=== PATIENT | female | born 1965 | race Hispanic/Latino ===

== ENCOUNTER → 2017-07-18 | Outpatient (CLI) | payer MEDICARE | END | disposition home or self-care (01) | LOC: OIH 09:16 | PROVIDERS: ATTEND Internal Medicine | DX: K76.0 Fatty (change of) liver, not elsewhere classified (principal); K44.9 Diaphragmatic hernia without obstruction or gangrene; K57.90 Diverticulosis of intestine, part unspecified, without perforation or abscess without bleeding; M47.895 Other spondylosis, thoracolumbar region; I70.90 Unspecified atherosclerosis; Z90.49 Acquired absence of other specified parts of digestive tract | CPT/HCPCS: 74176 ==

== ENCOUNTER 2017-09-03 20:27 | Emergency (ER) | payer MEDICARE ==
[2017-09-03 21:15] LABS: BASOPHILS % (AUTO) 0.1 % (0.0-5.0); HEMATOCRIT 39.1 % (36-48); MEAN CORPUSCULAR HEMOGLOBIN 33.1 pg (27.0-33.0); MEAN CORPUSCULAR HGB CONC 35.4 g/dL (32.0-36.0); MEAN CORPUSCULAR VOLUME 93.4 fL (79-99); MONOCYTES % (AUTO) 1.6 % (3.0-13.0); NEUTROPHILS % (AUTO) 87.3 % (40.0-77.0); PLATELET COUNT (AUTO) 302 K/uL (130-400); RED BLOOD CELL COUNT(AUTO) 4.18 MIL/uL (4.00-5.50); RED CELL DISTRIBUTION WIDTH 13.3 % (11.0-15.5); WHITE BLOOD COUNT (AUTO) 8.8 K/uL (4.8-10.8)
[2017-09-03 21:19] LABS: CREATININE 0.9 mg/dL (0.5-1.5); POTASSIUM 3.8 mmol/L (3.5-5.1)
[2017-09-03 21:21] LABS: APPEARANCE,URINE Clear (CLEAR); BILIRUBIN,URINE Negative (NEGATIVE); COLOR,URINE Yellow (YELLOW); GLUCOSE, URINE (UA) Negative (NEGATIVE); KETONES,URINE Trace mg/dL (NEGATIVE); LEUKOCYTE ESTERASE ,URINE Negative (NEGATIVE); NITRATE,URINE Negative (NEGATIVE); OCCULT BLOOD,URINE Small (NEGATIVE); PROTEIN,URINE POS 1+ (NEGATIVE); UROBILINOGEN,URINE 0.2 mg/dL (0.2-1.0)
[2017-09-03 21:22] LABS: INR 0.95 (0.85-1.15); PARTIAL THROMBOPLASTIN TIME 25.9 SEC (26.3-35.5)
[2017-09-03 21:24] LABS: ALBUMIN 3.8 g/dL (3.5-5.0); BILIRUBIN,TOTAL 0.3 mg/dL (0.2-1.0); TOTAL PROTEIN, SERUM 7.9 g/dL (6.0-8.3)
[2017-09-03 21:29] LABS: BACTERIA,URINE Rare /HPF (None Seen); SQUAMOUS EPITHELIAL CELL,UR 0-2 /LPF (0-2); WBC,URINE None Seen /HPF (0-1)
[2017-09-03] MEDS ORDERED: ONDANSETRON HCL 4 MG/2 ML VIAL ONE (21:56)
[2017-09-03] MEDS ORDERED: DiphenhydrAMINE HCL 50 MG/ML VIAL ONE (21:56)
[2017-09-03] MEDS ORDERED: METOCLOPRAMIDE 10 MG TABLET ONE (22:01)
[2017-09-03] MEDS ORDERED: CLONIDINE HCL 0.1 MG TABLET ONE (23:48)
[2017-09-03] MEDS ORDERED: KETOROLAC TROMETHAMINE 30MG/ML ONE (23:51)
== END 2017-09-04 01:14 | disposition home or self-care (01) ==
LOC: EDH 20:27
DX: I10 Essential (primary) hypertension (principal); R51 Headache; E78.5 Hyperlipidemia, unspecified; F32.9 Major depressive disorder, single episode, unspecified; R79.1 Abnormal coagulation profile; Z90.710 Acquired absence of both cervix and uterus; Z90.49 Acquired absence of other specified parts of digestive tract
CPT/HCPCS: 36415; 70450; 80053; 81001; 85025; 85610; 85730; 96374; 96375; 99285; J1200; J1885; J2405

== ENCOUNTER 2017-12-30 00:24 | Observation (INO) | payer MEDICARE ==
[~2017-12-30] VITALS: Ht 162.6 cm; Wt 89.8 kg
[2017-12-30 00:58] LABS: BASOPHILS % (AUTO) 0.4 % (0.0-5.0); HEMATOCRIT 38.8 % (36-48); LYMPHOCYTES % (AUTO) 13.2 % (21.0-51.0); MEAN CORPUSCULAR HEMOGLOBIN 32.9 pg (27.0-33.0); MEAN CORPUSCULAR HGB CONC 35.4 g/dL (32.0-36.0); MONOCYTES % (AUTO) 1.8 % (3.0-13.0); NEUTROPHILS % (AUTO) 84.6 % (40.0-77.0); PLATELET COUNT (AUTO) 305 K/uL (130-400); RED BLOOD CELL COUNT(AUTO) 4.17 MIL/uL (4.00-5.50); RED CELL DISTRIBUTION WIDTH 13.1 % (11.0-15.5); WHITE BLOOD COUNT (AUTO) 9.4 K/uL (4.8-10.8)
[2017-12-30 01:09] LABS: CREATININE 0.8 mg/dL (0.5-1.5); POTASSIUM 3.7 mmol/L (3.5-5.1)
[2017-12-30 01:14] LABS: BILIRUBIN,TOTAL 0.3 mg/dL (0.2-1.0); TOTAL PROTEIN, SERUM 7.8 g/dL (6.0-8.3)
[2017-12-30] MEDS ORDERED: METOPROLOL TARTRATE 1 MG/ML 5ML VIAL IV ONE (01:16)
[2017-12-30] MEDS ORDERED: HYDRALAZINE HCL 25 MG TABLET ONE (01:16)
[2017-12-30] MEDS ORDERED: ACETAMINOPHEN EXTRA STRENGTH 500 MG TABLET ONE (01:17)
[2017-12-30] MEDS ORDERED: LORAZEPAM 1 MG TABLET ONE (01:18)
[2017-12-30 01:32] LABS: APPEARANCE,URINE Clear (CLEAR); BILIRUBIN,URINE Negative (NEGATIVE); COLOR,URINE Yellow (YELLOW); GLUCOSE, URINE (UA) Negative (NEGATIVE); KETONES,URINE Negative (NEGATIVE); LEUKOCYTE ESTERASE ,URINE Negative (NEGATIVE); NITRATE,URINE Negative (NEGATIVE); OCCULT BLOOD,URINE Trace (NEGATIVE); PROTEIN,URINE Trace (NEGATIVE); UROBILINOGEN,URINE 0.2 mg/dL (0.2-1.0)
[2017-12-30 01:54] LABS: BACTERIA,URINE Few /HPF (None Seen); RBC,URINE 0-1 /HPF (0-1); WBC,URINE 0-1 /HPF (0-1)
[2017-12-30] MEDS ORDERED: METOCLOPRAMIDE 10 MG/2 ML VIAL ONE (02:43)
[2017-12-30] MEDS ORDERED: ONDANSETRON HCL 4 MG/2 ML VIAL ONE (02:44)
[2017-12-30] MEDS ORDERED: DiphenhydrAMINE HCL 50 MG/ML VIAL ONE (02:44)
[2017-12-30] MEDS ORDERED: SODIUM CHLORIDE 0.9% 50 ML IV ONE (02:44)
[2017-12-30 05:56] VITALS: BP 128/72
[2017-12-30] MEDS ORDERED: ONDANSETRON HCL MDV 20ML 2 MG/ML VIAL IVP PRN (06:00)
[2017-12-30 07:45] VITALS: BP 115/57
[2017-12-30] MEDS ORDERED: ACETAMINOPHEN 325 MG TAB PO PRN (10:30)
[2017-12-30 11:23] VITALS: BP 103/57
[2017-12-30] MEDS ORDERED: ACETAMINOPHEN-CODEINE 300/30MG TAB PO SCH (13:15)
[2017-12-30 16:31] VITALS: BP 132/77
== END 2017-12-30 17:12 | disposition home or self-care (01) ==
LOC: EDH 00:24 → EDHIP 04:05 → 4AH 05:50
PROVIDERS: ADMIT Internal Medicine; ATTEND Internal Medicine
DX: I10 Essential (primary) hypertension (principal); E78.5 Hyperlipidemia, unspecified; I16.1 Hypertensive emergency; Z90.710 Acquired absence of both cervix and uterus; Z79.899 Other long term (current) drug therapy
CPT/HCPCS: 36415; 70450; 80053; 81001; 85025; 93005; 99285; G0378 ×13; J1200; J2405; J2765; J3490

== ENCOUNTER 2018-03-14 15:50 | Emergency (ER) | payer MEDICARE ==
[2018-03-14] MEDS ORDERED: DIPHENHYDRAMINE HCL 25 MG CAPSULE ONE (16:11)
[2018-03-14] MEDS ORDERED: FAMOTIDINE 20MG TAB 20 MG TAB ONE (16:11)
[2018-03-14] MEDS ORDERED: KETOROLAC TROMETHAMINE 60 MG/2 ML VIAL ONE (16:11)
== END 2018-03-14 16:24 | disposition home or self-care (01) ==
LOC: EDH 15:50
DX: S60.561A Insect bite (nonvenomous) of right hand, initial encounter (principal); I10 Essential (primary) hypertension; E78.5 Hyperlipidemia, unspecified; F32.9 Major depressive disorder, single episode, unspecified; Z90.710 Acquired absence of both cervix and uterus; Z90.49 Acquired absence of other specified parts of digestive tract; W57.XXXA Bitten or stung by nonvenomous insect and other nonvenomous arthropods, initial encounter; Y93.89 Activity, other specified; Y92.098 Other place in other non-institutional residence as the place of occurrence of the external cause; Y99.8 Other external cause status
CPT/HCPCS: 96372; 99283; J1885; Q0163

== ENCOUNTER 2018-03-31 10:33 | Emergency (ER) | payer MEDICARE ==
[2018-03-31] MEDS ORDERED: ONDANSETRON HCL 4 MG/2 ML VIAL ONE (11:30)
[2018-03-31] MEDS ORDERED: SODIUM CHLORIDE 0.9% 1000ML 1,000 ML IV ONE (11:31)
[2018-03-31] MEDS ORDERED: MORPHINE SULFATE 4 MG/1ML SYG ONE (11:31)
[2018-03-31 11:33] LABS: BASOPHILS % (AUTO) 0.5 % (0.0-5.0); EOSINOPHILS % (AUTO) 1.1 % (0.0-8.0); MEAN CORPUSCULAR HEMOGLOBIN 32.6 pg (27.0-33.0); MEAN CORPUSCULAR HGB CONC 34.3 g/dL (32.0-36.0); MEAN CORPUSCULAR VOLUME 94.9 fL (79-99); MONOCYTES % (AUTO) 10.2 % (3.0-13.0); NEUTROPHILS % (AUTO) 44.2 % (40.0-77.0); NUCLEATED RED BLOOD CELLS 0.1 % (0.0-0.19); PLATELET COUNT (AUTO) 241 K/uL (130-400); RED CELL DISTRIBUTION WIDTH 12.6 % (11.0-15.5); WHITE BLOOD COUNT (AUTO) 4.2 K/uL (4.8-10.8)
[2018-03-31 11:43] LABS: CREATININE 0.7 mg/dL (0.5-1.5); POTASSIUM 3.9 mmol/L (3.5-5.1)
[2018-03-31 11:50] LABS: ALBUMIN 3.6 g/dL (3.5-5.0); BILIRUBIN,TOTAL 0.3 mg/dL (0.2-1.0); TOTAL PROTEIN, SERUM 7.1 g/dL (6.0-8.3)
[2018-03-31 12:11] LABS: INR 0.97 (0.85-1.15); PARTIAL THROMBOPLASTIN TIME 28.7 SEC (26.3-35.5); PROTHROMBIN TIME 10.2 SEC (9.6-11.6)
[2018-03-31] MEDS ORDERED: IOHEXOL-350 75 ML VIAL IV ONE (12:31)
[2018-03-31] MEDS ORDERED: MAG HYDROX/AL HYDROX/SIMETH ES 30 ML SUSP UDCUP ONE (13:39)
[2018-03-31] MEDS ORDERED: LIDOCAINE HCL 2% VISCOUS 15 ML UDCUP ONE (13:40)
== END 2018-03-31 14:31 | disposition home or self-care (01) ==
LOC: EDH 10:33
DX: R10.10 Upper abdominal pain, unspecified (principal); R11.2 Nausea with vomiting, unspecified; R19.7 Diarrhea, unspecified; I10 Essential (primary) hypertension; E78.5 Hyperlipidemia, unspecified; Z90.49 Acquired absence of other specified parts of digestive tract; Z90.710 Acquired absence of both cervix and uterus
CPT/HCPCS: 36415; 74177; 80053; 82550; 83690; 84484; 85025; 85610; 85730; 93005; 96361; 96374; 96375; 99285; J2270; J2405; J7030; Q9967

== ENCOUNTER 2018-08-09 21:57 | Emergency (ER) | payer MEDICARE | END 2018-08-09 23:05 | disposition left against medical advice (07) | LOC: EDH 21:57 ==

== ENCOUNTER → 2018-10-22 | Outpatient (CLI) | payer MEDICARE | END | disposition home or self-care (01) | LOC: RAH 12:57 | PROVIDERS: ATTEND Internal Medicine | DX: R10.2 Pelvic and perineal pain (principal); Z90.710 Acquired absence of both cervix and uterus | CPT/HCPCS: 76856 ==

== ENCOUNTER → 2018-12-08 | Outpatient (CLI) | payer MEDICARE ==
[~2018-12-08] MED LIST: IOHEXOL-350 75 ML VIAL IV ONE
== END | disposition home or self-care (01) ==
LOC: RAH 07:55
PROVIDERS: ATTEND Obstetrics & Gynecology
DX: K43.9 Ventral hernia without obstruction or gangrene (principal); M47.815 Spondylosis without myelopathy or radiculopathy, thoracolumbar region; I70.0 Atherosclerosis of aorta; R93.3 Abnormal findings on diagnostic imaging of other parts of digestive tract; Z90.49 Acquired absence of other specified parts of digestive tract
CPT/HCPCS: 74018; 74178; Q9967

== ENCOUNTER 2019-03-09 18:32 | Emergency (ER) | payer MEDICARE ==
[2019-03-09 19:10] LABS: BASOPHILS % (AUTO) 0.6 % (0.0-5.0); EOSINOPHILS % (AUTO) 1.4 % (0.0-8.0); HEMATOCRIT 39.7 % (36-48); LYMPHOCYTES % (AUTO) 44.8 % (21.0-51.0); MEAN CORPUSCULAR HEMOGLOBIN 33.6 pg (27.0-33.0); MEAN CORPUSCULAR HGB CONC 35.3 g/dL (32.0-36.0); MEAN CORPUSCULAR VOLUME 95.2 fL (79-99); MONOCYTES % (AUTO) 9.9 % (3.0-13.0); NEUTROPHILS % (AUTO) 43.3 % (40.0-77.0); NUCLEATED RED BLOOD CELLS 0.1 % (0.0-0.19); PLATELET COUNT (AUTO) 284 K/uL (130-400); RED BLOOD CELL COUNT(AUTO) 4.17 MIL/uL (4.00-5.50); RED CELL DISTRIBUTION WIDTH 13.1 % (11.0-15.5)
[2019-03-09 19:20] LABS: APPEARANCE,URINE Clear (CLEAR); BILIRUBIN,URINE Negative (NEGATIVE); COLOR,URINE Yellow (YELLOW); GLUCOSE, URINE (UA) Negative (NEGATIVE); KETONES,URINE Negative (NEGATIVE); LEUKOCYTE ESTERASE ,URINE Negative (NEGATIVE); NITRATE,URINE Negative (NEGATIVE); OCCULT BLOOD,URINE Trace (NEGATIVE); PH,URINE 6.5 (5.0-8.0); PROTEIN,URINE Negative (NEGATIVE); UROBILINOGEN,URINE 0.2 mg/dL (0.2-1.0)
[2019-03-09 19:24] LABS: BILIRUBIN,TOTAL 0.2 mg/dL (0.2-1.0); CREATININE 0.7 mg/dL (0.5-1.5); POTASSIUM 3.7 mmol/L (3.5-5.1); TOTAL PROTEIN, SERUM 7.6 g/dL (6.0-8.3)
[2019-03-09 19:34] LABS: BACTERIA,URINE Rare /HPF (None Seen); RBC,URINE None Seen /HPF (0-1); SQUAMOUS EPITHELIAL CELL,UR None Seen /HPF (0-2); WBC,URINE 0-1 /HPF (0-1)
[2019-03-09] MEDS ORDERED: ENALAPRILAT DIHYDRATE 1.25MG/ML 1ML VIAL IV ONE (19:44)
[2019-03-09] MEDS ORDERED: DIAZEPAM 2 MG TAB ONE (19:45)
== END 2019-03-09 20:42 | disposition home or self-care (01) ==
LOC: EDH 18:32
DX: I16.0 Hypertensive urgency (principal); R11.2 Nausea with vomiting, unspecified; R42 Dizziness and giddiness; F32.9 Major depressive disorder, single episode, unspecified; E78.5 Hyperlipidemia, unspecified; W18.39XA Other fall on same level, initial encounter; Y93.89 Activity, other specified; Y92.89 Other specified places as the place of occurrence of the external cause; Y99.8 Other external cause status
CPT/HCPCS: 36415; 70450; 80053; 81001; 85025; 93005; 96374; 99291; J3490

== ENCOUNTER → 2019-03-24 | Outpatient (CLI) | payer MEDICARE | END | disposition home or self-care (01) | LOC: RAH 13:57 | PROVIDERS: ATTEND Internal Medicine | DX: L98.9 Disorder of the skin and subcutaneous tissue, unspecified (principal); Z98.890 Other specified postprocedural states | CPT/HCPCS: 76705 ==

== ENCOUNTER → 2019-03-26 | Outpatient (CLI) | payer MEDICARE | END | disposition home or self-care (01) | LOC: RAH 14:00 | PROVIDERS: ATTEND Internal Medicine | DX: M54.5 Low back pain (principal) | CPT/HCPCS: 72131 ==

== ENCOUNTER 2019-03-28 15:21 | Emergency (ER) | payer MEDICARE ==
[2019-03-28] MEDS ORDERED: ONDANSETRON HCL 4 MG/2 ML VIAL ONE (16:06)
[2019-03-28] MEDS ORDERED: FAMOTIDINE/PF 20 MG/2 ML VIAL IV ONE (16:07)
[2019-03-28 16:11] LABS: BILIRUBIN,URINE Negative (NEGATIVE); COLOR,URINE Yellow (YELLOW); GLUCOSE, URINE (UA) Negative (NEGATIVE); KETONES,URINE Trace mg/dL (NEGATIVE); LEUKOCYTE ESTERASE ,URINE Trace (NEGATIVE); NITRATE,URINE Negative (NEGATIVE); OCCULT BLOOD,URINE Small (NEGATIVE); PH,URINE 5.5 (5.0-8.0); PROTEIN,URINE POS 1+ mg/dL (NEGATIVE)
[2019-03-28 16:12] LABS: APPEARANCE,URINE SLIGHTLY CLOUDY (CLEAR)
[2019-03-28 16:17] LABS: BACTERIA,URINE Few /HPF (None Seen); MUCUS,URINE Few LPF (None Seen); RBC,URINE 0-1 /HPF (0-1); SQUAMOUS EPITHELIAL CELL,UR Few /HPF (0-2)
[2019-03-28 16:19] LABS: BASOPHILS % (AUTO) 0.5 % (0.0-5.0); EOSINOPHILS % (AUTO) 1.4 % (0.0-8.0); HEMATOCRIT 41.3 % (36-48); LYMPHOCYTES % (AUTO) 24.1 % (21.0-51.0); MEAN CORPUSCULAR HEMOGLOBIN 33.2 pg (27.0-33.0); MEAN CORPUSCULAR HGB CONC 34.8 g/dL (32.0-36.0); MEAN CORPUSCULAR VOLUME 95.4 fL (79-99); NUCLEATED RED BLOOD CELLS 0.1 % (0.0-0.19); PLATELET COUNT (AUTO) 272 K/uL (130-400); RED BLOOD CELL COUNT(AUTO) 4.33 MIL/uL (4.00-5.50); RED CELL DISTRIBUTION WIDTH 12.6 % (11.0-15.5); WHITE BLOOD COUNT (AUTO) 9.4 K/uL (4.8-10.8)
[2019-03-28 16:33] LABS: CREATINE KINASE, TOTAL 154 U/L (21-232); LIPASE 320 U/L (114-286)
[2019-03-28 16:50] LABS: PLATELET MORPHOLOGY PLT CLUMPS PRESENT
[2019-03-28 17:10] LABS: CREATININE 0.7 mg/dL (0.5-1.5); POTASSIUM 3.1 mmol/L (3.5-5.1)
[2019-03-28] MEDS ORDERED: LIDOCAINE HCL 2% VISCOUS 15 ML UDCUP ONE (17:12)
[2019-03-28] MEDS ORDERED: MAG HYDROX/AL HYDROX/SIMETH ES 30 ML SUSP UDCUP ONE (17:13)
[2019-03-28 17:15] LABS: ALBUMIN 3.5 g/dL (3.5-5.0); BILIRUBIN,TOTAL 0.2 mg/dL (0.2-1.0); TOTAL PROTEIN, SERUM 6.7 g/dL (6.0-8.3)
[2019-03-28] MEDS ORDERED: POTASSIUM BICARB/CIT AC 25 MEQ TABLET.EFF ONE (18:58)
== END 2019-03-28 19:03 | disposition home or self-care (01) ==
LOC: EDH 15:21
DX: K29.70 Gastritis, unspecified, without bleeding (principal); R19.7 Diarrhea, unspecified; F32.9 Major depressive disorder, single episode, unspecified; E78.5 Hyperlipidemia, unspecified; I10 Essential (primary) hypertension
CPT/HCPCS: 36415; 80053; 81001; 82550; 83690; 84484; 85025; 93005; 96361; 96374; 96375; 99285; J2405; J3490

== ENCOUNTER 2020-02-19 00:34 | Observation (INO) | payer MEDICARE ==
[2020-02-19] MEDS ORDERED: ASPIRIN 325 MG TABLET ONE (00:53)
[2020-02-19] MEDS ORDERED: METOCLOPRAMIDE 10 MG/2 ML VIAL ONE (01:35)
[2020-02-19] MEDS ORDERED: NITROGLYCERIN 1GM/1 INCH PACKET TD ONE (01:35)
[2020-02-19] MEDS ORDERED: ORPHENADRINE CITRATE 30 MG/ML ML ONE (02:40)
[2020-02-19] MEDS ORDERED: HYDRALAZINE HCL 20 MG/ML VIAL IV PRN (03:30)
[2020-02-19] MEDS ORDERED: ONDANSETRON HCL 4 MG/2 ML VIAL IV PRN (03:30)
[2020-02-19] MEDS ORDERED: NITROGLYCERIN 0.4 MG SL TAB SL PRN (03:30)
[2020-02-19] MEDS ORDERED: ACETAMINOPHEN 325 MG TAB PO PRN (03:30)
[2020-02-19] MEDS: METOCLOPRAMIDE 10 MG/2 ML VIAL IVP SCH (03:45)
[2020-02-19] MEDS ORDERED: MORPHINE SULFATE 4 MG/1ML SYG IV ONE (03:45)
[2020-02-19 05:25] VITALS: BP 148/76
[2020-02-19] MEDS: ACETAMINOPHEN 325 MG TAB PO PRN ×3 (07:39→22:30)
[2020-02-19] MEDS ORDERED: CLONIDINE HCL 0.1 MG TABLET PO PRN (07:45)
[2020-02-19 08:00] VITALS: BP 127/64
[2020-02-19] MEDS: ENOXAPARIN SODIUM 40 MG/0.4 ML SYRINGE SQ SCH (09:38)
[2020-02-19] MEDS: ASPIRIN 325 MG TABLET PO SCH (09:38)
[2020-02-19 11:00] VITALS: BP 131/72
--- NOTE | 2020-02-19 13:56 | NUR ---
stress test Patient unable to do treadmill stress test due to back issues. Dr Aranda notified and orders received [facility]. orders placed.
[2020-02-19] MEDS ORDERED: REGADENOSON 0.4 MG/5 ML PF SYG IVP SCH (15:00)
[2020-02-19 16:00] VITALS: BP 159/93
--- NOTE | 2020-02-19 17:45 | NUR ---
PT RETURNED TO ROOM BY W/C IN GOOD CONDITION FROM [employer]. SITTING AT BEDSIDE EATING SUPPER WITH C/O HEADACHE, MEDS GIVEN. NO C/O OF DYSPNEA OR DISTRESS
[2020-02-19 20:00] VITALS: BP 159/73
--- NOTE | 2020-02-19 20:02 | NUR ---
INITIAL SW spoke with patient. She states she lives alone. Emergency contact is her daughter, Gail Gurrola. Patient has no home health but does have PHC with [facility] 24.5 hours a week. DME: [employer], [employer]. Patient needs help with ADL's and does not drive. Family and provider help with transportation. PCP is Dr. Aranda. [facility] in [place]. Patient voices no safety concerns regarding returning home. DCP is home. Addendum: 02/19/20 at 2004 by SAADIA DAVIDSON SS Amended: Links added.
[2020-02-20] VITALS: BP 147/87
[2020-02-20] MEDS: METOCLOPRAMIDE 10 MG/2 ML VIAL IVP SCH (03:45)
[2020-02-20 03:56] VITALS: BP 137/86
[2020-02-20] MEDS: ASPIRIN 325 MG TABLET PO SCH (08:48)
[2020-02-20] MEDS: ENOXAPARIN SODIUM 40 MG/0.4 ML SYRINGE SQ SCH (08:49)
--- NOTE | 2020-02-20 09:30 | NUR ---
preparing pt for discharge home. s/l removed w/o difficulty or complication. Discharge instructions reviewed and understood, prescription for clonidine 0.1 mg given to pt and explained its purpose.
--- NOTE | 2020-02-20 09:52 | NUR ---
discharged by w/c in good condition. Chose to drive herself home.
== END 2020-02-20 09:50 | disposition home or self-care (01) ==
LOC: EDH 00:34 → EDHIP 03:19 → 3DH 05:01
PROVIDERS: ADMIT Internal Medicine; ATTEND Internal Medicine
DX: I16.0 Hypertensive urgency (principal); R07.89 Other chest pain; R51 Headache; E78.5 Hyperlipidemia, unspecified; F32.9 Major depressive disorder, single episode, unspecified; F41.9 Anxiety disorder, unspecified; Z90.710 Acquired absence of both cervix and uterus; Z90.49 Acquired absence of other specified parts of digestive tract
CPT/HCPCS: 36415; 71045; 78452; 80053; 80061; 81001; 82550 ×2; 83690; 83874; 83880; 84484 ×2; 85025; 85610; 85730; 93005 ×2; 93017; 96372 ×2; 99285; A9500 ×2; G0378 ×22; J1650 ×2; J2360; J2765; J2785; 96374

== ENCOUNTER → 2020-09-28 | Outpatient (CLI) | payer MEDICARE | END | disposition home or self-care (01) | LOC: OIH 14:31 | PROVIDERS: ATTEND Internal Medicine | DX: M25.522 Pain in left elbow (principal); L03.114 Cellulitis of left upper limb; W19.XXXA Unspecified fall, initial encounter; X58.XXXA Exposure to other specified factors, initial encounter; Y93.89 Activity, other specified; Y92.89 Other specified places as the place of occurrence of the external cause; Y99.8 Other external cause status | CPT/HCPCS: 73070 ==

== ENCOUNTER 2021-10-02 12:44 | Inpatient (IN) | payer MEDICARE ==
[~2021-10-02] VITALS: Ht 162.6 cm; Wt 93.2 kg
[2021-10-02] MEDS ORDERED: HYDROMORPHONE 0.5 MG SYG (0.5MG/0.5ML) IVP PRN (13:30)
[2021-10-02 14:03] LABS: BASOPHILS % (AUTO) 0.2 % (0.0-5.0); EOSINOPHILS % (AUTO) 0.1 % (0.0-8.0); HEMATOCRIT 37.7 % (36-48); LYMPHOCYTES % (AUTO) 13.4 % (21.0-51.0); MEAN CORPUSCULAR HEMOGLOBIN 32.8 pg (27.0-33.0); MEAN CORPUSCULAR HGB CONC 35.3 g/dL (32.0-36.0); MEAN CORPUSCULAR VOLUME 93.1 fL (79-99); MONOCYTES % (AUTO) 9.6 % (3.0-13.0); NEUTROPHILS % (AUTO) 75.9 % (40.0-77.0); PLATELET COUNT (AUTO) 346 K/uL (130-400); RED BLOOD CELL COUNT(AUTO) 4.05 MIL/uL (4.00-5.50); RED CELL DISTRIBUTION WIDTH 13.2 % (11.0-15.5); WHITE BLOOD COUNT (AUTO) 15.7 K/uL (4.8-10.8)
[2021-10-02 14:12] LABS: CREATININE 0.8 mg/dL (0.5-1.5); POTASSIUM 3.1 mmol/L (3.5-5.1)
[2021-10-02 14:22] LABS: ALBUMIN 3.7 g/dL (3.5-5.0); BILIRUBIN,TOTAL 0.2 mg/dL (0.2-1.0); TOTAL PROTEIN, SERUM 7.2 g/dL (6.0-8.3)
[2021-10-02] MEDS ORDERED: LIDOCAINE HCL-MPF 1% 2ML VIAL IJ PRN (14:30)
[2021-10-02] MEDS ORDERED: POTASSIUM CHLORIDE 20MEQ/100ML 100 ML IV PRN (14:30)
[2021-10-02] MEDS ORDERED: KCL 20 MEQ ERTAB PO PRN (14:30)
[2021-10-02] MEDS ORDERED: POTASSIUM CHLORIDE 10% ELIXIR 20 MEQ/15 ML UDCUP PO PRN (14:30)
[2021-10-02] MEDS ORDERED: ACETAMINOPHEN 325 MG TAB ONE (14:35)
[2021-10-02] MEDS ORDERED: 0.9%NACL 1000ML 1,000 ML IV ONE (14:39)
[2021-10-02] MEDS: AZITHROMYCIN 500MG+NS 250ML IVPB SCH (14:54)
[2021-10-02] MEDS: ACETAMINOPHEN 325 MG TAB PO PRN ×2 (14:55→21:03)
[2021-10-02] MEDS: CEFTRIAXONE 1G VIAL IVP SCH (14:56)
[2021-10-02] MEDS: SOLU-MEDROL 125MG VIAL IVP SCH ×2 (14:58→21:03)
[2021-10-02] MEDS: BENZONATATE 100 MG CAPSULE PO PRN ×2 (14:58→23:57)
[2021-10-02] MEDS ORDERED: 0.9%NACL 1000ML 1,000 ML IV SCH (15:00)
[2021-10-02 16:55] VITALS: BP 140/83
[2021-10-02] MEDS: 1/2 NS 1000ML 1,000 ML IV SCH (17:53)
[2021-10-02] MEDS: GUAIFENESIN-CODEINE 5 ML SYRUP PO PRN ×2 (17:54→22:29)
[2021-10-02] MEDS: IPRATROPIUM/ALBUTEROL SULFATE 3 ML SOLUTION IH SCH ×2 (18:46→22:00)
[2021-10-02 20:05] VITALS: BP 158/94
[2021-10-02] MEDS ORDERED: SOLU-MEDROL 125MG VIAL IVP SCH (21:00)
[2021-10-02 23:58] VITALS: BP 158/98
[2021-10-03] VITALS (7 sets, daily range): BP systolic 139–176; BP diastolic 55–84
[2021-10-03] MEDS: IPRATROPIUM/ALBUTEROL SULFATE 3 ML SOLUTION IH SCH ×5 (02:08→23:19)
[2021-10-03] MEDS: ACETAMINOPHEN 325 MG TAB PO PRN ×2 (02:33→17:40)
[2021-10-03] MEDS: GUAIFENESIN-CODEINE 5 ML SYRUP PO PRN ×3 (04:39→20:15)
[2021-10-03] MEDS: 1/2 NS 1000ML 1,000 ML IV SCH ×3 (04:43→09:10)
[2021-10-03] MEDS ORDERED: IPRATROPIUM/ALBUTEROL SULFATE 3 ML SOLUTION IH PRN (07:00)
[2021-10-03 07:05] LABS: BASOPHILS % (AUTO) 0.1 % (0.0-5.0); MEAN CORPUSCULAR HEMOGLOBIN 31.8 pg (27.0-33.0); MEAN CORPUSCULAR HGB CONC 33.8 g/dL (32.0-36.0); MEAN CORPUSCULAR VOLUME 94.1 fL (79-99); NEUTROPHILS % (AUTO) 86.2 % (40.0-77.0); PLATELET COUNT (AUTO) 299 K/uL (130-400); RED BLOOD CELL COUNT(AUTO) 3.93 MIL/uL (4.00-5.50); RED CELL DISTRIBUTION WIDTH 13.3 % (11.0-15.5); WHITE BLOOD COUNT (AUTO) 13.9 K/uL (4.8-10.8)
[2021-10-03 07:36] LABS: ALBUMIN 3.5 g/dL (3.5-5.0); BILIRUBIN,TOTAL 0.4 mg/dL (0.2-1.0); CREATININE 0.9 mg/dL (0.5-1.5); POTASSIUM 3.4 mmol/L (3.5-5.1); TOTAL PROTEIN, SERUM 7.2 g/dL (6.0-8.3)
[2021-10-03] MEDS: SOLU-MEDROL 125MG VIAL IVP SCH ×2 (09:12→09:17)
[2021-10-03] MEDS: ENOXAPARIN SODIUM 40 MG/0.4 ML SYRINGE SQ SCH (09:12)
[2021-10-03] MEDS: CEFTRIAXONE 1G VIAL IVP SCH (13:22)
[2021-10-03] MEDS: AZITHROMYCIN 500MG+NS 250ML IVPB SCH (13:22)
[2021-10-03] MEDS: BENZONATATE 100 MG CAPSULE PO PRN (17:39)
[2021-10-03] MEDS: FAMOTIDINE 20MG TAB PO SCH (20:15)
[2021-10-03] MEDS: HYDROCODONE/ACETAMINOPHEN 5/325 MG TAB PO SCH (20:15)
[2021-10-04] MEDS: BENZONATATE 100 MG CAPSULE PO PRN ×3 (02:53→19:45)
[2021-10-04 04:05] VITALS: BP 163/81
[2021-10-04 05:35] LABS: MAGNESIUM 2.4 mg/dL (1.80-2.40); PHOSPHORUS 3.3 mg/dL (2.5-4.9); THYROID STIMULATING HORMONE 0.31 uIU/mL (0.36-3.74)
[2021-10-04] MEDS: IPRATROPIUM/ALBUTEROL SULFATE 3 ML SOLUTION IH SCH ×3 (06:22→17:15)
[2021-10-04] MEDS: ACETAMINOPHEN 325 MG TAB PO PRN ×2 (06:26→13:30)
[2021-10-04] MEDS: GUAIFENESIN-CODEINE 5 ML SYRUP PO PRN ×2 (06:59→13:29)
[2021-10-04] MEDS: 1/2 NS 1000ML 1,000 ML IV SCH (07:00)
[2021-10-04 07:40] VITALS: BP 154/91
[2021-10-04] MEDS: FAMOTIDINE 20MG TAB PO SCH ×2 (10:08→19:45)
[2021-10-04] MEDS: SOLU-MEDROL 125MG VIAL IVP SCH (10:08)
[2021-10-04] MEDS: ENOXAPARIN SODIUM 40 MG/0.4 ML SYRINGE SQ SCH (10:09)
[2021-10-04 11:25] VITALS: BP 186/91
[2021-10-04] MEDS: CEFTRIAXONE 1G VIAL IVP SCH (13:29)
[2021-10-04] MEDS: AZITHROMYCIN 500MG+NS 250ML IVPB SCH (13:29)
[2021-10-04 15:25] VITALS: BP 136/75
[2021-10-04] MEDS ORDERED: GUAFACSF5L PO (17:33)
[2021-10-04] MEDS ORDERED: PRED20TA3 PO (17:33)
[2021-10-04] MEDS: HYDROCODONE/ACETAMINOPHEN 5/325 MG TAB PO SCH (19:45)
[2021-10-04 20:33] VITALS: BP 152/82
[2021-10-05 00:14] VITALS: BP 137/73
[2021-10-05] MEDS: GUAIFENESIN-CODEINE 5 ML SYRUP PO PRN (01:46)
[2021-10-05 04:02] VITALS: BP 152/88
[2021-10-05] MEDS: IPRATROPIUM/ALBUTEROL SULFATE 3 ML SOLUTION IH SCH (06:19)
[2021-10-05] MEDS: BENZONATATE 100 MG CAPSULE PO PRN (06:41)
[2021-10-05 08:00] VITALS: BP 158/69
[2021-10-05] MEDS: ENOXAPARIN SODIUM 40 MG/0.4 ML SYRINGE SQ SCH (09:00)
[2021-10-05] MEDS ORDERED: PREDNISONE 20 MG TABLET PO SCH (09:00)
[2021-10-05] MEDS: FAMOTIDINE 20MG TAB PO SCH (10:03)
== END 2021-10-05 11:30 | disposition home or self-care (01) | DRG 202 ==
LOC: EDH 12:44 → OBSVTOIN 12:45 → EDHIP 12:45 → 3DH 17:00
PROVIDERS: ADMIT Internal Medicine; ATTEND Internal Medicine
DX: J45.902 Unspecified asthma with status asthmaticus (principal); J44.1 Chronic obstructive pulmonary disease with (acute) exacerbation; J44.0 Chronic obstructive pulmonary disease with (acute) lower respiratory infection; J20.9 Acute bronchitis, unspecified; M19.90 Unspecified osteoarthritis, unspecified site; D72.810 Lymphocytopenia; E87.6 Hypokalemia; I10 Essential (primary) hypertension; M48.00 Spinal stenosis, site unspecified; E03.9 Hypothyroidism, unspecified; Z20.822 Contact with and (suspected) exposure to COVID-19
CPT/HCPCS: 36415; 71045; 71250; 80053; 82550; 83605; 83735; 83874; 83880; 84100; 84443; 84484; 85025; 86038; 86215; 86235; 86255; 87040; 87635; 87804; 93005; 94640; 94664; G0378; J0456; J0696; J1650; J2930; J7030

== ENCOUNTER → 2022-07-18 | Outpatient (CLI) | payer MEDICARE ==
[~2022-07-18] MED LIST changes: +GADOTERATE MEGLUMINE 10 MMOL/20 ML VIAL IV ONE; +GUAFACSF5L PO; -IOHEXOL-350 75 ML VIAL IV ONE; +PRED20TA3 PO
== END | disposition home or self-care (01) ==
LOC: RAH 07:48
PROVIDERS: ATTEND Neurological Surgery
DX: M54.16 Radiculopathy, lumbar region (principal)
CPT/HCPCS: 72158; A9575

== ENCOUNTER → 2024-02-18 | Emergency (ER) | payer MEDICARE, OTHER ==
[~2024-02-18] VITALS: Ht 162.6 cm; Wt 85.7 kg
[~2024-02-18] MED LIST changes: -GADOTERATE MEGLUMINE 10 MMOL/20 ML VIAL IV ONE
[2024-02-18 17:04] VITALS: BP 152/86; PULSE 66; RESP 18
[2024-02-18] MEDS: IBUPROFEN 600 MG TABLET PO ONE (17:55)
[2024-02-18 19:45] LABS: APPEARANCE,URINE CLEAR (CLEAR); BILIRUBIN,URINE NEGATIVE (NEGATIVE); COLOR,URINE COLORLESS (YELLOW); GLUCOSE, URINE (UA) NEGATIVE (NEGATIVE); KETONES,URINE NEGATIVE (NEGATIVE); LEUKOCYTE ESTERASE ,URINE NEGATIVE Leu/uL (NEGATIVE); NITRATE,URINE NEGATIVE (NEGATIVE); PROTEIN,URINE NEGATIVE (NEGATIVE); UROBILINOGEN,URINE 0.2 mg/dL (0.2-1.0)
[2024-02-18 19:48] LABS: ADD UA MICROSCOPIC YES
[2024-02-18 19:50] LABS: BACTERIA,URINE FEW /HPF (None Seen); RBC,URINE 0-1 /HPF (0-1); SQUAMOUS EPITHELIAL CELL,UR RARE /HPF (0-2); WBC,URINE 0-1 /HPF (0-1)
== END ==
LOC: EDH 17:03
DX: S93.402A Sprain of unspecified ligament of left ankle, initial encounter (principal); S93.401A Sprain of unspecified ligament of right ankle, initial encounter; S80.11XA Contusion of right lower leg, initial encounter; S80.12XA Contusion of left lower leg, initial encounter; F41.9 Anxiety disorder, unspecified; F32.A Depression, unspecified; E78.00 Pure hypercholesterolemia, unspecified; I10 Essential (primary) hypertension; Z98.890 Other specified postprocedural states; Z79.899 Other long term (current) drug therapy; Z90.710 Acquired absence of both cervix and uterus; W01.0XXA Fall on same level from slipping, tripping and stumbling without subsequent striking against object, initial encounter; Y93.89 Activity, other specified; Y92.89 Other specified places as the place of occurrence of the external cause; Y99.8 Other external cause status
CPT/HCPCS: 73552; 73564; 73590; 81001

== ENCOUNTER → 2024-08-06 | Outpatient (CLI) | payer OTHER ==
--- NOTE | 2024-08-06 14:53 | HMCIMG ---
Exam Type: CHEST 2VWS Clinical Information: BENIGN ESSENTIAL HTN Comparison: None Findings: The lungs are clear of infiltrates. The heart is normal in size. The bony and soft tissue structures of the chest are unremarkable. Impression: Clear lungs.
--- NOTE | 2024-08-06 14:54 | HMCIMG ---
Neck for soft tissues AP and lateral History: FOREIGN BODY OF NECK Comparison: none Findings: Examination is unremarkable. Specifically, the airway is preserved. The epiglottis is normal in appearance. No evidence of epiglottis thickening is noted. No retropharyngeal pathology suspected. No evidence of radiopaque foreign body is seen. The cervical vertebrae are normally aligned and are of normal heights. The lung bases are clear. IMPRESSION: NORMAL SOFT TISSUES OF THE NECK.
== END | disposition home or self-care (01) ==
LOC: RAH 13:49
PROVIDERS: ATTEND Internal Medicine
DX: S10.95XA Superficial foreign body of unspecified part of neck, initial encounter (principal); I10 Essential (primary) hypertension
CPT/HCPCS: 70360; 71046

== ENCOUNTER 2024-08-28 00:30 | Emergency (ER) | payer OTHER, MEDICARE ==
[~2024-08-28] VITALS: Ht 162.6 cm; Wt 89.8 kg
[2024-08-28 01:04] LABS: BASOPHILS # (AUTO) 0.02 K/uL (0.00-0.20); BASOPHILS % (AUTO) 0.2 % (0.0-5.0); HEMATOCRIT 39.7 % (36-48); IMMATURE GRANULOCYTE ABSOLUTE 0.08 K/uL (0-1); LYMPHOCYTES # (AUTO) 1.3 K/uL (1.0-4.8); LYMPHOCYTES % (AUTO) 14.8 % (21.0-51.0); MEAN CORPUSCULAR HEMOGLOBIN 32.4 pg (27.0-33.0); MEAN CORPUSCULAR HGB CONC 35.8 g/dL (32.0-36.0); MEAN CORPUSCULAR VOLUME 90.6 fL (79-99); MONOCYTES # (AUTO) 0.6 K/uL (0.1-1.0); MONOCYTES % (AUTO) 6.7 % (3.0-13.0); NEUTROPHILS # (AUTO) 6.8 K/uL (1.8-7.7); NEUTROPHILS % (AUTO) 77.4 % (40.0-77.0); PLATELET COUNT (AUTO) 330 K/uL (130-400); RED BLOOD CELL COUNT(AUTO) 4.38 MIL/uL (4.00-5.50); RED CELL DISTRIBUTION WIDTH 12.6 % (11.0-15.5); WHITE BLOOD COUNT (AUTO) 8.7 K/uL (4.8-10.8)
[2024-08-28 01:12] LABS: POTASSIUM 3.2 mmol/L (3.5-5.1)
[2024-08-28 01:14] LABS: INR 1.01 (0.85-1.15); PROTHROMBIN TIME 10.7 SEC (9.6-11.6)
[2024-08-28 01:16] LABS: PARTIAL THROMBOPLASTIN TIME 27.3 SEC (26.3-35.5)
[2024-08-28 01:25] LABS: APPEARANCE,URINE CLEAR (CLEAR); BILIRUBIN,URINE NEGATIVE (NEGATIVE); COLOR,URINE COLORLESS (YELLOW); GLUCOSE, URINE (UA) NEGATIVE (NEGATIVE); KETONES,URINE NEGATIVE (NEGATIVE); LEUKOCYTE ESTERASE ,URINE NEGATIVE Leu/uL (NEGATIVE); NITRATE,URINE NEGATIVE (NEGATIVE); OCCULT BLOOD,URINE SMALL (NEGATIVE); PROTEIN,URINE 20 mg/dL (NEGATIVE); UROBILINOGEN,URINE 0.2 mg/dL (0.2-1.0)
[2024-08-28 01:27] LABS: BACTERIA,URINE RARE /HPF (None Seen); MUCUS,URINE RARE LPF (None Seen); RBC,URINE 0-1 /HPF (0-1); SQUAMOUS EPITHELIAL CELL,UR RARE /HPF (0-2); WBC,URINE 0-1 /HPF (0-1)
[2024-08-28] MEDS: hydrALAZine 20MG/ML VIAL IV ONE (02:02)
[2024-08-28] MEDS: PoTASSium BIcarbonate/CIT AC 25 MEQ TABLET.EFF PO ONE (02:36)
[2024-08-28] MEDS: acetaMINOPHEN 500 MG TABLET PO ONE (02:37)
[2024-08-28] MEDS ORDERED: LORA10TA7 PO (02:40)
[2024-08-28] MEDS ORDERED: FLUT16H NS (02:40)
--- NOTE | 2024-08-28 02:41 | ERN ---
General Chief Complaint: Hypertension Stated Complaint: COUGH Time Seen by MD: 00:32 Time Seen by Midlevel: 00:32 Source: patient History of Present Illness Initial Comments 59-year-old female who presents to the emergency department due to high blood pressure. Patient reports she initiated having a shortness of breath, headache, dizziness, and checked her blood pressure which was systolically above 200. Patient states she has been having a dry cough x2 weeks has been seen by PCP. Denies any chest pain, fevers, abdominal pain or further associated symptoms. PMHx anxiety, depression, hypercholesterolemia, HTN, Teixeira's palsy Allergies: Coded Allergies: No Known Allergies (Verified Allergy, Unknown, 10/02/15) No Known Drug Allergies (Unverified Allergy, Unknown, 03/09/19) Home Meds Active Scripts Fluticasone Propionate (Flonase Nasal [place]) 50 Mcg/Actuation [place], 2 SPRAY NS DAILY, #16 GM 0 Refills Prov:ATIF ROSSI 08/28/24 Loratadine (Loratadine) 10 Mg Tablet, 1 TAB PO DAILY for allergy symptoms for 30 Days, #30 TAB 0 Refills Prov:ATIF ROSSI 08/28/24 Guaifenesin/Codeine Phos (Robitussin with Codeine Syrp - Sugar Free) 5 Ml Syrp, 5 ML PO BID PRN for COUGH, #3 ML Prov:FAMILIA PEREZ HYDROGENATION STILL OPERATOR 10/04/21 Prednisone (Prednisone) 20 Mg Tablet, 20 MG PO DAILY for 7 Days, #7 TAB Prov:FAMILIA PEREZ HYDROGENATION STILL OPERATOR 10/04/21 Past Medical History Past Medical History: Anxiety, Depression, High Cholesterol, Hypertension, Other Medical History Other: BELS PALSY Past Surgical History: Hysterectomy, Other Surgical History Other: BLADDER MESH, BACK SURGERY ROS Dictation Constitutional: Negative for fever,chills, and weight loss Eyes: Negative for injury, pain,redness, and discharge ENT: Negative for injury,pain or swelling Cardiovascular: Negative for chest pain, palpitations, and edema Respiratory: Positive for cough, SOB Negative for shortness of breath, and wheezing, Abdomen/GI: Negative for abdominal pain, nausea, vomiting, diarrhea, and constipation Back: Negative for injury and pain : Negative for painful urination, bleeding or discharge MS/Extremity: Negative for injury and deformity Skin: Negative for rash, and discoloration Neuro: Positive for headache, dizziness Negative for weakness, numbness, tingling, and seizure Psych: Negative for suicide ideation, homicidal ideation, and hallucinations Physical Exam Physical Exam Dictation General: awake, alert, no acute distress Head/Face: Normocephalic, atraumatic Eyes: PERRL, EOMI, normal conjuctiva ENT: oral cavity clear, TMs clear, oral mucosa moist Neck: Supple, normal range of motion Cardiovascular: RRR, normal S1/S2 Respiratory: CTAB, no respiratory distress, no rales or wheezes Abdomen: Soft, non-tender, non-distended, normal bowel sounds, no guarding or rebound. Skin: Warm, dry, normal turgor, no rash MS/Extremity: Pulses equal, no cyanosis, neurovascular intact, FROM Neuro: COAx4, GCS 15, strength 5/5, CN 2-12 intact, normal cerebellar exam, normal gait, Psych: Normal behavior, mood, and affect normal Results Laboratory and Microbiology Lab and Micro Result Laboratory Tests Test 08/28/24 00:54 08/28/24 01:12 White Blood Count 8.7 K/uL (4.8-10.8) Red Blood Count 4.38 MIL/uL (4.00-5.50) Hemoglobin 14.2 g/dL (12.0-16.0) Hematocrit 39.7 % (36-48) Mean Corpuscular Volume 90.6 fL (79-99) Mean Corpuscular Hemoglobin 32.4 pg (27.0-33.0) Mean Corpuscular Hemoglobin Concent 35.8 g/dL (32.0-36.0) Red Cell Distribution Width 12.6 % (11.0-15.5) Platelet Count 330 K/uL (130-400) Mean Platelet Volume 10.3 fL (7.5-10.5) Immature Granulocyte % (Auto) 0.9 % (0-1) Neutrophils (%) (Auto) 77.4 % (40.0-77.0) H Lymphocytes (%) (Auto) 14.8 % (21.0-51.0) L Monocytes (%) (Auto) 6.7 % (3.0-13.0) Eosinophils (%) (Auto) 0.0 % (0.0-8.0) Basophils (%) (Auto) 0.2 % (0.0-5.0) Neutrophils # (Auto) 6.8 K/uL (1.8-7.7) Lymphocytes # (Auto) 1.3 K/uL (1.0-4.8) Monocytes # (Auto) 0.6 K/uL (0.1-1.0) Eosinophils # (Auto) 0.00 K/uL (0.00-0.70) Basophils # (Auto) 0.02 K/uL (0.00-0.20) Absolute Immature Granulocyte (auto 0.08 K/uL (0-1) Nucleated Red Blood Cells 0.0 % (0.0-0.19) Prothrombin Time 10.7 SEC (9.6-11.6) Prothromb Time International Ratio 1.01 (0.85-1.15) Activated Partial Thromboplast Time 27.3 SEC (26.3-35.5) D-Dimer Quantitative (PE/DVT) 404 ng/mL (0-500) Sodium Level 140 mmol/L (136-145) Potassium Level 3.2 mmol/L (3.5-5.1) L Chloride Level 102 mmol/L (101-111) Carbon Dioxide Level 20 mmol/L (21-32) L Blood Urea Nitrogen 7 mg/dL (7-18) Creatinine 1.0 mg/dL (0.5-1.0) Glomerular Filtration Rate Calc 64 mL/min (>90) Random Glucose 168 mg/dL (70-105) H Total Calcium 9.4 mg/dL (8.5-10.1) Troponin I High Sensitivity 17 ng/L (4-50) B-Type Natriuretic Peptide 33 pg/mL (0-100) Urine Color COLORLESS (YELLOW) Urine Appearance CLEAR (CLEAR) Urine pH 6.0 (5.0-8.0) Urine Specific [place] 1.006 (1.001-1.031) Urine Protein 20 mg/dL (NEGATIVE) H Urine Glucose (UA) NEGATIVE mg/dL (NEGATIVE) Urine Ketones NEGATIVE mg/dL (NEGATIVE) Urine Occult Blood SMALL (NEGATIVE) H Urine Nitrate NEGATIVE (NEGATIVE) Urine Bilirubin NEGATIVE mg/dL (NEGATIVE) Urine Urobilinogen 0.2 mg/dL (0.2-1.0) Urine Leukocyte Esterase NEGATIVE Ezequiel/uL Urine RBC 0-1 /HPF (0-1) Urine WBC 0-1 /HPF (0-1) Urine Squamous Epithelial Cells RARE /HPF (0-2) Urine Bacteria RARE /HPF (None Seen) Labs Reviewed?: Yes EKG/XRAY/US/CT/MRI EKG Comment Date: 08/28/2024 Time: 03:04 Rate: 96 EKG interpretation: Normal sinus rhythm, probable left atrial enlargement, no STEMI Reviewed by ED Attending MDM MDM: Differential diagnosis: Hypertension, abnormal electrolytes, pulmonary embolism Rationale: 59-year-old female who presents to the emergency department due to high blood pressure. Patient reports she initiated having a shortness of b reath, headache, dizziness, and checked her blood pressure which was systolically above 200. Patient states she has been having a dry cough x2 weeks has been seen by PCP. Denies any chest pain, fevers, abdominal pain or further associated symptoms. Labs obtained are nonspecific,, troponin within normal limits, BNP within normal limits, D-dimer within normal limits. Mild hypokalemia for which potassium was administered. UA negative for urinary tract infection. EKG within normal limits. Hydralazine administered in the ED with blood pressure improvement. Patient is satting at 97% on room air, in no acute distress, nonlabored breathing. Patient denied wanting COVID or influenza testing. Patient was educated on findings and diagnosis. Advised to follow up with PCP. Return to the emergency department if any worsening symptoms. Patient verbalized understanding. Patient stable for discharge. There are no social concerns with this patient. I independently interpreted the test that were performed, results were reviewed by me and considered findings on radiology if ordered. Medical management and examination interpretation discussions were had by me with other qualified healthcare professionals as indicated for the patient's care. ED Course Orders Procedure Category Date Status Time Cbc With Differential LAB 08/28/24 Complete 00:38 Basic Metabolic Panel LAB 08/28/24 Complete 00:38 Urinalysis LAB 08/28/24 Complete W/Microscopic 00:38 Pt And Ptt LAB 08/28/24 Complete 00:38 Troponin I High LAB 08/28/24 Complete Sensitivity 00:38 Chest 1vw RAD 08/28/24 Taken 00:38 Hydralazine 20mg Inj PHA 08/28/24 Complete (Apresoline 20mg In 01:00 B-Type Natriuretic LAB 08/28/24 Complete Peptide 01:19 D-Dimer LAB 08/28/24 Complete 01:19 Acetaminophen 500mg PHA 08/28/24 Complete Tab (Tylenol 500mg T 02:30 Potassium Bicarb/Cit PHA 08/28/24 Complete Ac 25meq (K-Lyte Ta 02:30 12 Lead Ekg Tracing- EKG 08/28/24 Logged Technical 02:42 Current Medications Medications (Trade) Dose Ordered Sig/Ashley Route PRN Reason Start Time Stop Time Status Last Admin Dose Admin Acetaminophen (TYLenol 500MG TAB) 1,000 mg ONCE ONCE PO 08/28/24 02:30 08/28/24 02:31 DC 08/28/24 02:37 Hydralazine HCl (APRESOLine 20MG INJ) 10 mg ONCE ONCE IV 08/28/24 01:00 08/28/24 01:01 DC 08/28/24 02:02 Potassium Bicarbonate (K-Lyte Tablet Eff 25 Meq Tablet.eff) 25 meq ONCE ONCE PO 08/28/24 02:30 08/28/24 02:31 DC 08/28/24 02:36 Vital Signs Date Time Temp Pulse Resp B/P (MAP) Pulse Ox O2 Delivery O2 Flow Rate FiO2 08/28/24 02:49 99.0 94 18 153/89 97 Room Air* 0 21 08/28/24 01:54 96 18 153/89 96 Room Air* 0 21 08/28/24 01:27 105 18 170/94 96 Room Air* 0 21 08/28/24 00:54 104 18 190/94 95 Room Air* 0 21 08/28/24 00:31 97.7 116 20 223/121 97 Room Air DX & DISP Disposition: Discharge Departure Impression: Primary Impression: Elevated blood pressure reading Additional Impression: Cough Condition: Stable Scripts Fluticasone Propionate (Flonase Nasal [place]) 50 Mcg/Actuation [place] 2 SPRAY NS DAILY, #16 GM 0 Refills Prov: ATIF ROSSI 08/28/24 Loratadine (Loratadine) 10 Mg Tablet 1 TAB PO DAILY for allergy symptoms for 30 Days, #30 TAB 0 Refills Prov: ATIF ROSSI 08/28/24 Additional Instructions: Discharge home. Rest. Follow up with primary care in 24 hours. Return to the ER for any acute changes or worsening symptoms. If any medications were prescribed take as directed. Okay to continue home medications unless otherwise discussed during your visit in the emergency room today. Patient was also advised to follow-up with primary care physician in 1 to 2 days for continued monitoring. Referrals: ANA M KWOK MD (PCP) I performed the substantive portion of the visit. I have reviewed and personally made and approve the management plan that is documented in the notes by myself or the KEN. I acknowledge full responsibility for the patient's management plan. ATIF ROSSI Aug 28, 2024 02:41
[2024-08-28 02:49] VITALS: BP 153/89; PULSE 94; RESP 18; TEMP 99; O2SAT 97
--- NOTE | 2024-08-28 05:32 | EKG ---
[facility] Test Date: 2024-08-28 Test Time: 03:04:05 Pat Name: AMY TAMAYO Department: ED Room: Gender: F Direct Service Worker: [id number] : 1965 Requested By: ATIF ROSSI Order Number: [id number] Reading MD: Andra Power Measurements Intervals [place] Rate: 96 P: 19 FL: 144 QRS: -44 QRSD: 96 T: 4 QT: 382 QTc: 484 Interpretive Statements Sinus rhythm Probable left atrial enlargement Inferior infarct, old Compared to ECG 10/02/2021 14:08:45 Myocardial infarct finding now present Electronically Signed On 08-28-2024 08:46:11 MANAGER ARCHITECTURE by Andra Power Please click the below link to view image of tracing.
--- NOTE | 2024-08-28 07:47 | HMCIMG ---
PORTABLE CHEST RADIOGRAPH INDICATION: SOB COMPARISON: 08/06/2024 FINDINGS: Heart size is normal. The pulmonary vascularity and german appear normal. No abnormal pulmonary parenchymal opacity or consolidation identified. No significant pleural effusion noted. No pneumothorax detected. IMPRESSION: No radiographic evidence for any acute cardiopulmonary process.
== END 2024-08-28 03:18 | disposition home or self-care (01) ==
LOC: EDH 00:30
DX: I10 Essential (primary) hypertension (principal); R05.9 Cough, unspecified; E78.00 Pure hypercholesterolemia, unspecified; Z79.52 Long term (current) use of systemic steroids; Z79.899 Other long term (current) drug therapy; Z90.710 Acquired absence of both cervix and uterus; Z98.890 Other specified postprocedural states
CPT/HCPCS: 99285; 96374; 71045; 84484; 80048; 83880; 85025; 85378; 85610; 85730; 81001; 36415; 93005; J0360

== ENCOUNTER → 2025-05-07 | Emergency (ER) | payer OTHER, MEDICAID ==
[~2025-05-07] VITALS: Ht 162.6 cm; Wt 89.8 kg
[~2025-05-07] MED LIST changes: +FLUT16H NS; +LORA10TA7 PO
[2025-05-07 00:38] VITALS: TEMP 97.2
--- NOTE | 2025-05-07 00:44 | ERN ---
General Chief Complaint: Multiple Complaints Stated Complaint: HYPERTENSION WITH NAUSEA, HEADACHE Time Seen by MD: 00:31 History of Present Illness Initial Comments Patient comes in with a date of high blood pressure headache nausea. Patient reports history of hypertension and cholesterol. She takes losartan and amlodipine 5 mg. Around 2:00 pm. he started getting a headache with some dizziness. She has also been having some paresthesias in the right upper arm. She took her blood pressure was high in the 190s to 200s. She did take an extra dose of the amlodipine after discussing with her doctor. She reports compliance with medications. She comes in for evaluation tonight with continued headache and some nausea. 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 Patient also did state that she had received a steroid shot and Toradol IM for chronic back pain that she gets about once per month. She received the prior to onset of symptoms although she has not had trouble with them in the past. Allergies: Coded Allergies: No Known Allergies (Verified Allergy, Unknown, 10/02/15) No Known Drug Allergies (Unverified Allergy, Unknown, 03/09/19) Home Meds Active Scripts Fluticasone Propionate (Flonase Nasal [place]) 50 Mcg/Actuation [place], 2 SPRAY NS DAILY, #16 GM 0 Refills Prov:ATIF ROSSI 08/28/24 Loratadine (Loratadine) 10 Mg Tablet, 1 TAB PO DAILY for allergy symptoms for 30 Days, #30 TAB 0 Refills Prov:ATIF ROSSI 08/28/24 Guaifenesin/Codeine Phos (Robitussin with Codeine Syrp - Sugar Free) 5 Ml Syrp, 5 ML PO BID PRN for COUGH, #3 ML Prov:RONNI PEREZNE CARTRIDGE ASSEMBLING MACHINE ADJUSTER 10/04/21 Prednisone (Prednisone) 20 Mg Tablet, 20 MG PO DAILY for 7 Days, #7 TAB Prov:RONNI PEREZNE CARTRIDGE ASSEMBLING MACHINE ADJUSTER 10/04/21 Past Medical History Past Medical History: Anxiety, Depression, High Cholesterol, Hypertension, Other Medical History Other: BELS PALSY Past Surgical History: Hysterectomy, Other Surgical History Other: BLADDER MESH, BACK SURGERY ROS Dictation Ten systems reviewed and negative except as noted in HPI Physical Exam Physical Exam Dictation GEN: non toxic, NAD HEENT: atrumatic, PERRL, EOMI, conjunctivae normal no nystagmus. NECK: Soft supple nontender Heart RRR, no murmurs Chest: No deformity Lungs: Lungs clear to auscultation Ab: Soft nondistended nontender Back: No midline step-offs. No gross deformity. No CVA tenderness : m/s: Moving all four extremities. No gross deformity Neuro: CN 2-12 intact decides left-sided facial palsy of both forehead and lower face consistent with Teixeira's palsy. Moving all four extremities. No pronator drift. No ataxia. Psych: Cooperative Results Laboratory and Microbiology Lab and Micro Result Laboratory Tests Test 05/07/25 00:53 White Blood Count 10.0 K/uL (4.8-10.8) Red Blood Count 4.69 MIL/uL (4.00-5.50) Hemoglobin 15.1 g/dL (12.0-16.0) Hematocrit 43.0 % (36-48) Mean Corpuscular Volume 91.7 fL (79-99) Mean Corpuscular Hemoglobin 32.2 pg (27.0-33.0) Mean Corpuscular Hemoglobin Concent 35.1 g/dL (32.0-36.0) Red Cell Distribution Width 12.4 % (11.0-15.5) Platelet Count 362 K/uL (130-400) Mean Platelet Volume 10.2 fL (7.5-10.5) Immature Granulocyte % (Auto) 1.0 % (0-1) Neutrophils (%) (Auto) 80.1 % (40.0-77.0) H Lymphocytes (%) (Auto) 15.9 % (21.0-51.0) L Monocytes (%) (Auto) 2.8 % (3.0-13.0) L Eosinophils (%) (Auto) 0.0 % (0.0-8.0) Basophils (%) (Auto) 0.2 % (0.0-5.0) Neutrophils # (Auto) 8.0 K/uL (1.8-7.7) H Lymphocytes # (Auto) 1.6 K/uL (1.0-4.8) Monocytes # (Auto) 0.3 K/uL (0.1-1.0) Eosinophils # (Auto) 0.00 K/uL (0.00-0.70) Basophils # (Auto) 0.02 K/uL (0.00-0.20) Absolute Immature Granulocyte (auto 0.10 K/uL (0-1) Nucleated Red Blood Cells 0.0 % (0.0-0.19) Sodium Level 133 mmol/L (136-145) L Potassium Level 3.7 mmol/L (3.5-5.1) Chloride Level 96 mmol/L (101-111) L Carbon Dioxide Level 28 mmol/L (21-32) Blood Urea Nitrogen 14 mg/dL (7-18) Creatinine 0.8 mg/dL (0.5-1.0) Glomerular Filtration Rate Calc 84 mL/min (>90) Random Glucose 159 mg/dL (70-105) H Total Calcium 9.9 mg/dL (8.5-10.1) Total Bilirubin 0.4 mg/dL (0.2-1.0) Aspartate Amino Transf (AST/SGOT) 26 U/L (10-37) Alanine Aminotransferase (ALT/SGPT) 36 U/L (12-78) Alkaline Phosphatase 105 U/L (50-136) Troponin I High Sensitivity 10 ng/L (4-50) Total Protein 8.5 g/dL (6.0-8.3) H Albumin 4.2 g/dL (3.5-5.0) Labs Reviewed?: Yes EKG/XRAY/US/CT/MRI EKG Comment Sinus rhythm 88 CO 149 QRS of 103 QTC of 520 her more axis QRS complexes narrow. Low voltage in V3 through V6. Nonspecific STT wave flattening. Interpretation abnormal CT Scan Comment PATIENT: AMY TAMAYO MR#: [id number] : 1965 SEX: F AGE: 60 LOCATION: [facility] ORDER STATUS: REG ER REPORT#: [id number] SERVICE REASON: hodgson, htn ORDERING PHYSICIAN: DERRICK FRANCO MD PROCEDURE: HEAD WO - CT HEAD/BRAIN W/O CONTRAST EXAM: Non-contrast CT examination of the Brain CLINICAL HISTORY: Headache. TECHNIQUE: Thin collimated axial CT images of the brain were obtained with sagittal and coronal reformatted images also submitted. CT scan is done according to ALARA (As Low as Reasonably Achievable). CONTRAST USED: None. COMPARISON: None provided. FINDINGS: No acute intracranial abnormality is present. No acute cortical infarction, hemorrhage, mass, or mass effect. No hydrocephalus or abnormal extra-axial fluid collections. The posterior fossa is unremarkable. The skull base and calvarium are intact. 0.5 cm and 1.5 cm polyps versus mucosal retention cysts within the left ethmoid sinuses. The remaining paranasal sinuses are clear. The mastoid air cells are clear bilaterally. IMPRESSION: No acute intracranial abnormality is present. 0.5 cm and 1.5 cm polyps versus mucosal retention cysts within the left ethmoid sinuses. /[place] DICTATED BY: ZACH PAULINO Jr., MD DATE: 05/07/25331 ELECTRONICALLY SIGNED BY: ZACH PAULINO Jr., MD DATE: 05/07/25331 MDM Hypertension here. Patient also having headache and nausea. Multiple differentials considered. We will do a head CT here. Antiemetics. Labs. Labs reviewed. head CT also unremarkable. Think patient is having a benign headache. Patient was given 10 mg hydralazine as well initially and blood pressures down into the 160s over 70s. Patient feeling improved like to be discharged home. Continue supportive care. Keep blood pressure log. Follow up with primary care physician ED Course Orders Procedure Category Date Status Time Cbc With Differential LAB 05/07/25 Complete 00:40 Comprehensive LAB 05/07/25 Complete Metabolic Panel 00:40 Troponin I High LAB 05/07/25 Complete Sensitivity 00:40 Ct Head/Brain W/O CT 05/07/25 Resulted Contrast 00:40 Ondansetron 4mg Inj PHA 05/07/25 Complete (Zofran 4mg Inj) 01:00 Hydralazine 20mg Inj PHA 05/07/25 Complete (Apresoline 20mg In 01:00 12 Lead Ekg Tracing- EKG 05/07/25 Complete Technical 00:40 Ketorolac PHA 05/07/25 Complete Tromethamine 15mg/Ml 02:30 Current Medications Medications (Trade) Dose Ordered Sig/Ashley Route PRN Reason Start Time Stop Time Status Last Admin Dose Admin Hydralazine HCl (APRESOLine 20MG INJ) 10 mg ONCE ONCE IV 05/07/25 01:00 05/07/25 01:01 DC 05/07/25 01:58 Ketorolac Tromethamine (toRADol) 15 mg ONCE ONCE IM 05/07/25 02:30 05/07/25 02:47 DC 05/07/25 02:51 Ondansetron HCl (zoFRAN 4MG INJ) 4 mg ONCE ONCE IVP 05/07/25 01:00 05/07/25 01:01 DC 05/07/25 01:57 Vital Signs Date Time Temp Pulse Resp B/P (MAP) Pulse Ox O2 Delivery O2 Flow Rate FiO2 05/07/25 03:06 70 18 161/76 97 Room Air* 0 05/07/25 02:55 76 18 178/99 97 Room Air* 0 05/07/25 02:14 87 17 170/100 98 Room Air* 0 05/07/25 01:58 77 18 196/107 98 Room Air* 0 05/07/25 01:58 77 196/107 05/07/25 00:38 97.2 84 16 193/107 99 Room Air 0 DX & DISP Disposition: Discharge Departure Impression: Primary Impression: Headache Additional Impression: HTN (hypertension) Condition: Stable Additional Instructions: Keep a blood pressure log daily to discuss further blood pressure management to primary care physician Return for any worsening symptoms or other concerns Referrals: ANA M KWOK MD (PCP) DERRICK FRANCO MD May 07, 2025 00:44
[2025-05-07 00:59] LABS: IMMATURE GRANULOCYTE ABSOLUTE 0.10 K/uL (0-1); NUCLEATED RED BLOOD CELLS 0.0 % (0.0-0.19); PLATELET COUNT (AUTO) 362 K/uL (130-400); RED BLOOD CELL COUNT(AUTO) 4.69 MIL/uL (4.00-5.50); RED CELL DISTRIBUTION WIDTH 12.4 % (11.0-15.5); WHITE BLOOD COUNT (AUTO) 10.0 K/uL (4.8-10.8)
[2025-05-07 01:11] LABS: CREATININE 0.8 mg/dL (0.5-1.0); GLOMERULAR FILTR. RATE CALC 84.0 mL/min (>90); GLUCOSE,RANDOM 159.0 mg/dL (70-105); SODIUM SERUM 133.0 mmol/L (136-145); UREA NITROGEN, BLOOD 14.0 mg/dL (7-18)
[2025-05-07 01:23] LABS: ASPARTATE AMINOTRANSFERASE 26.0 U/L (10-37); TOTAL PROTEIN, SERUM 8.5 g/dL (6.0-8.3)
--- NOTE | 2025-05-07 01:25 | EKG ---
[facility] Test Date: 2025-05-07 Test Time: 01:24:10 Pat Name: AMY TAMAYO Department: ED Patient ID: [id number] Room: Gender: F Employment Specialist: [id number] : 1965 Requested By: DERRICK FRANCO Order Number: [id number] Reading MD: Bonilla Salguero Measurements Intervals [place] Rate: 88 P: 28 [place]: 149 QRS: -79 QRSD: 103 T: -10 QT: 429 QTc: 520 Interpretive Statements Sinus rhythm Anterolateral infarct, age indeterminate Prolonged QT interval Compared to ECG 08/28/2024 03:04:05 Prolonged QT interval now present Myocardial infarct finding still present Electronically Signed On 05-08-2025 09:28:48 ENTERPRISE RESOURCE PLANNING CONSULTANT by Bonilla Salguero Please click the below link to view image of tracing.
--- NOTE | 2025-05-07 02:33 | HMCIMG ---
EXAM: Non-contrast CT examination of the Brain CLINICAL HISTORY: Headache. TECHNIQUE: Thin collimated axial CT images of the brain were obtained with sagittal and coronal reformatted images also submitted. CT scan is done according to ALARA (As Low as Reasonably Achievable). CONTRAST USED: None. COMPARISON: None provided. FINDINGS: No acute intracranial abnormality is present. No acute cortical infarction, hemorrhage, mass, or mass effect. No hydrocephalus or abnormal extra-axial fluid collections. The posterior fossa is unremarkable. The skull base and calvarium are intact. 0.5 cm and 1.5 cm polyps versus mucosal retention cysts within the left ethmoid sinuses. The remaining paranasal sinuses are clear. The mastoid air cells are clear bilaterally. IMPRESSION: No acute intracranial abnormality is present. 0.5 cm and 1.5 cm polyps versus mucosal retention cysts within the left ethmoid sinuses. /Benoit
[2025-05-07 03:06] VITALS: BP 161/76; PULSE 70; RESP 18; O2SAT 97
== END ==
LOC: EDH 00:25
DX: I10 Essential (primary) hypertension (principal); R51.9 Headache, unspecified; R11.0 Nausea; R20.2 Paresthesia of skin; E78.00 Pure hypercholesterolemia, unspecified; G89.29 Other chronic pain; F41.9 Anxiety disorder, unspecified; F32.A Depression, unspecified; Z79.52 Long term (current) use of systemic steroids; Z90.710 Acquired absence of both cervix and uterus; Z98.890 Other specified postprocedural states
CPT/HCPCS: 99285; 96374; 70450; 96375; 84484; 80053; 36415; 85025; 93005; 96372; J1885; J0360; J2405